=== PATIENT | female | born 1940 | race Caucasian/White ===

== ENCOUNTER → 2017-03-06 | Outpatient (CLI) | payer MEDICARE, BC ==
[~2017-03-06] MED LIST: ELAVIL25 MG PO; MOBIC7.5 MG PO; NORVASC5 MG PO; ZANAFLEX4 M1 PO
== END | disposition short-term general hospital (02) ==
LOC: CLPAIN 08:48
DX: M51.16 Intervertebral disc disorders with radiculopathy, lumbar region (principal); M47.26 Other spondylosis with radiculopathy, lumbar region; M48.06 Spinal stenosis, lumbar region; M70.62 Trochanteric bursitis, left hip

== ENCOUNTER 2017-03-13 14:01 | Day surgery (SDC) | payer MEDICARE, BC | END 2017-03-13 16:25 | disposition short-term general hospital (02) | LOC: SURGOP 14:01 | PROC: 0S9B3ZZ Drainage of Left Hip Joint, Percutaneous Approach (ICD-10-PCS; principal; 2017-03-13) | DX: M70.62 Trochanteric bursitis, left hip (principal); I10 Essential (primary) hypertension; K21.9 Gastro-esophageal reflux disease without esophagitis; M17.0 Bilateral primary osteoarthritis of knee; R73.09 Other abnormal glucose; M19.90 Unspecified osteoarthritis, unspecified site; Z88.5 Allergy status to narcotic agent; Z79.899 Other long term (current) drug therapy; Z90.49 Acquired absence of other specified parts of digestive tract | CPT/HCPCS: J1040; J3301 ==